=== PATIENT | female | born 1950 | race Caucasian/White ===

== ENCOUNTER → 2020-12-07 03:11 | Outpatient (CLI) | payer MEDICARE, SELFPAY ==
[2020-12-07 18:10] LABS: SARS-CoV-2 RNA PCR Negative
== END ==
PROVIDERS: PCP Internal Medicine; Visit Provider Otolaryngology
DX: Z01.812 Encounter for preprocedural laboratory examination (principal); Z20.822 Contact with and (suspected) exposure to COVID-19
CPT/HCPCS: C9803; U0003; U0005

== ENCOUNTER 2020-12-10 02:05 | Day surgery (SDC) | payer MEDICARE, SELFPAY ==
[2020-11-29 13:24] VITALS: BMI 30.3
[2020-12-10] VITALS (7 sets, daily range): BP systolic 131–151; BP diastolic 73–84; PULSE 62–92; RESP 11–18; TEMP 36.3–36.4; O2SAT 96–100
[2020-12-10] MEDS: ACETAMINOPHEN 500 MG TABLET 1000 MG PO (06:36)
[2020-12-10] MEDS: OXYMETAZOLINE HCL 0.05% NAS 15 ML BTL (*BKC) 1 SPRAY NASAL (06:37)
[2020-12-10] MEDS: LACTATED RINGERS 1,000 ML 30 ML IV CONT ×2 (06:40→09:14)
--- NOTE | 2020-12-10 07:17 | WPDHPUPDATE1 ---
History and Physical Update Update Date/Time: 12/10/20 07:17 Ricarda here for Functional endoscopic sinus surgery. History and Physical has been reviewed, including an updated exam of the patient. There are NO changes in the patient's condition. Risks, benefits, and alternatives have been discussed and questions answered. Patient agrees to proceed with procedure.
--- NOTE | 2020-12-10 07:21 | P.PNAN_ITS ---
Anes - Initial Pre Proc Eval Procedure: Operation Date: 12/10/20 08:00 Proposed Procedures p Right Sphenoidotomy, Possible Right Ethmoidectomy, Possible Right Maxillary Antrostomy, Right Turbinate Reduction with Fusion Protocol and Microdebrider - Tip Cleaning MD Date/Time: 12/10/20 07:21 Surgeon: Tip Cleaning MD Pre Op Diagnosis: sphenoid sinusitis Patient Data Age: 69 Gender: F Height: 5 ft Weight: 71.5 kg Last Vital Signs Temp 36.4 C L 12/10/20 06:20 Pulse 62 12/10/20 06:20 Resp 18 12/10/20 06:20 BP 135/84 12/10/20 06:20 Pulse Ox 96 12/10/20 06:20 Allergies Allergy/AdvReac Type Severity Reaction Status Date / Time No Known Allergies Allergy Verified 12/10/20 06:56 Home Medications Medication Instructions Recorded Confirmed Type L.acidop,moiess,lac,rha-B.lac,wiliam 1 cap PO DAILY 11/29/20 12/10/20 History [Advanced Probiotic] atorvastatin 40 mg HS 11/29/20 12/10/20 History levothyroxine 100 mcg QAM 11/29/20 12/10/20 History multivitamin [Multi-Vitamin] 1 tablet DAILY 11/29/20 12/10/20 History omeprazole 40 mg QAM 11/29/20 12/10/20 History sertraline 50 mg QAM 11/29/20 12/10/20 History Patient hx anesthesia problems: none Family hx anesthesia problems: none [facility] Past Medical History Medical History (Updated 12/10/20 @ 07:22 by Marco Barragan MD) GERD (gastroesophageal reflux disease) Hyperlipidemia Morbid obesity ANITA (obstructive sleep apnea) Social History Social History Smoking status: Never smoker Second hand tobacco smoke exposure: No Alcohol intake: current Drinks per week: 1 Substance use: never Substance use type: does not use Living arrangements: with family Spiritual care concerns: No Anes - Eval Final PreProcedure Day of Procedure 12/10/20 07:21 Patient weight: obese Heart: regular rate and rhythm Lungs: clear to auscultation Airway: Mallampati scale class II Neurological: alert and oriented Last oral intake: >/= 8 hours ASA classification: III Emergent: no Anesthetic plan: proceed Anesthesia type and monitoring: general ETT and standard monitoring Informed Consent: The patient's anesthetic plan and its attendant risks and benefits were discussed with the patient/family/POA. Questions were solicited and answers provided to the satisfaction of the patient/family/POA.
[2020-12-10] MEDS: ceFAZolin 2 GM/D5W 50 ML 2 GM/50 ML BAG IVPB (08:04)
[2020-12-10] MEDS: LIDO 1%/EPINEPHRINE 1:100,000 50 ML VIAL INFILTRATE (08:10)
--- NOTE | 2020-12-10 09:26 | P.OP_ITS ---
Procedure Note - Detailed Date of procedure: 12/10/20 Pre-op diagnosis: sphenoid sinusitis Post-op diagnosis: same Procedure performed: Right sphenoidotomy with tissue removal, bilateral inferior turbinoplasty Description of procedure: On the date of procedure the patient was met in the preoperative area and risk and benefits of the procedure reviewed with the patient as documented in the H&P and they elected to proceed with surgery. Patient was brought back to the operating room by the anesthesia team and underwent general endotracheal anesthesia. Once an adequate plane of anesthesia was obtained a timeout was performed to assure the patient identification the patient here to be performed were correct. They were.The patient was then prepped and draped in the normal fashion for endoscopic sinus surgery. The diffusion image guidance system was calibrated and used for the entire case. Afrin-soaked pledgets were placed in the nasal cavities bilaterally. The entire case was performed under endoscopic visualization. Nasal endoscopy was performed at the beginning of the case. 1% lidocaine with 1:100,000 epinephrine was then injected into the root of the middle turbinate and lateral nasal wall. Attention was first directed towards the right side. The middle turbinate was lateralized, the superior turbinate was lateralized and the sphenoid os was identified. It was opened using a mushroom punch but the infected sinus was not exposed. A kerasin, mushroom punch and j-curette was used to dissect through thick bone inferiorly revealing the infected right sphenoid sinus. It was full of fungal element. This was removed and then the sinus was copiously irrigated. Hemostasis was obtained with cottonoids and nasopore packing. No other sinuses were diseased and thus no further sinus dissection was required. Lastly, the bilateral inferior turbiantes were reduced submucosally using 2mm microdebrider and then outfractured with a sayer elevator. This significantly opened the airway. At this point, the procedure was concluded. Care the patient was transferred back to the anesthesia team and the patient was awoke in the operating room and transferred back to the PACU in stable condition. Tip Cleaning M.D. Anesthesia: [facility] Surgeon: Tip Cleaning MD Estimated blood loss (mL): 10 Drains: No Packing: Yes (right nasopore) Pathology: none sent Complications: No immediate complications Condition: stable Disposition: same day Findings: Right sphenoid fungal sinusitis
--- NOTE | 2020-12-10 10:23 | SUR.PHASEII ---
REPORT GIVEN TO DOMI PARKER RN
== END 2020-12-10 11:18 | disposition home or self-care (01) ==
PROVIDERS: PCP Internal Medicine; Visit Provider Otolaryngology
PROC: (CPT 31288; principal; 2020-12-10 08:00)
DX: J32.3 Chronic sphenoidal sinusitis (principal); E78.5 Hyperlipidemia, unspecified; K21.9 Gastro-esophageal reflux disease without esophagitis; G47.33 Obstructive sleep apnea (adult) (pediatric); E66.9 Obesity, unspecified; Z68.30 Body mass index [BMI] 30.0-30.9, adult
CPT/HCPCS: 31288; 61782; 30140; A9270; J0330; J0690; J1100; J2250; J2405; J2704; J7120